=== PATIENT | male | born 1980 | race American Indian/Alaskan Native ===

== ENCOUNTER 2018-04-01 21:14 | Emergency (ER) | payer OTHER ==
[2018-04-01 21:17] VITALS: BMI 27.8
[2018-04-01 21:30] VITALS: TEMP 98.1; O2SAT 98
[2018-04-01 22:04] LABS: BASO % 0.6 % (0.0-2.0); EOS % 0.3 % (0.0-4.0); HEMOGLOBIN 13.1 g/dL (12.0-18.0); LYMPH % 14.1 % (20.0-40.0); MEAN CELL VOLUME 91.1 fl (80.0-94.0); MEAN CORPUSCULAR HEMOGLOBIN 28.4 pg (27.0-31.0); MEAN CORPUSCULAR HGB CONC 31.2 g/dL (33.0-37.0); MEAN PLATELET VOLUME 9.2 fl (7.2-11.7); MONO # 0.8 K/uL (0.0-0.8); MONO % 11.6 % (0.0-10.0); NEUT # 5.4 K/uL (1.8-7.0); NEUT % 73.4 % (50.0-75.0); RBC 4.61 Mil/uL (4.40-5.90); RED CELL DISTRIBUTION WIDTH 16.3 % (11.5-14.5); WHITE BLOOD COUNT 7.3 K/uL (4.8-10.8)
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
[2018-04-01 22:17] LABS: BLOOD UREA NITROGEN 9 mg/dl (9-20); CALCIUM 9.7 mg/dL (8.4-10.2); GFR NON-AFRICAN AMERICAN > 60
[2018-04-02 01:47] VITALS: BP 129/83; PULSE 81; RESP 15
== END 2018-04-02 03:42 | disposition home or self-care (01) ==
LOC: H.ER 21:14 → MERGE 21:14 → H.ER 04-02 03:42
DX: F19.10 Other psychoactive substance abuse, uncomplicated (principal)
CPT/HCPCS: 80048; 80320; 82948; 85025; 96372; 99283; J1630; J2060